=== PATIENT | female | born 1955 | race Caucasian/White ===

== ENCOUNTER 2018-12-09 17:54 | Emergency (ER) | payer OTHER ==
[2018-12-09 18:15] VITALS: BP 153/84
--- NOTE | 2018-12-09 18:41 | ED ---
Throat Pain/Nasal Congestion - HPI Summary HPI Summary: 63 yr old female with the complaint of rash to the right forehead, pain for about six days and now right eye discomfort. She has not had fever. She has no other complaints. No NVD. No focal deficits. Symptoms are moderate. No blurred vision. - History of Current Complaint Chief Complaint: [facility] Time Seen by Provider: 12/09/18 18:16 - Allergies/Home Medications Allergies/Adverse Reactions: Allergies Allergy/AdvReac Type Severity Reaction Status Date / Time No Known Allergies Allergy Verified 12/09/18 18:21 Home Medications: Home Medications Insulin GLARGINE(*) [Lantus(*)] 1 unit SUBCUT DAILY 12/09/18 [History Confirmed 12/09/18] Insulin LISPRO* [HumaLOG*] 1 unit PO DAILY 12/09/18 [History Confirmed 12/09/18] Losartan Potassium 25 mg PO DAILY 12/09/18 [History Confirmed 12/09/18] Metoprolol Tartrate TAB* [Lopressor TAB*] 50 mg PO DAILY 12/09/18 [History Confirmed 12/09/18] metFORMIN* [Glucophage 500 MG TAB *] 500 mg PO DAILY 12/09/18 [History Confirmed 12/09/18] PMH/Surg Hx/FS Hx/Imm Hx Endocrine/Hematology History: Reports: Hx Diabetes - 2 - Surgical History Surgery Procedure, Year, and Place: appendectomy Infectious Disease History: No Infectious Disease History: Denies: Traveled Outside the [place] in Last 30 Days - Family History Known Family History: Positive: None - Social History Alcohol Use: Rare Substance Use Type: Reports: None Smoking Status (MU): Never Smoked Tobacco Review of Systems Constitutional: Negative Positive: Other - pain right Positive: Other - rash right forehead and upper eyelid Negative: Weakness, Paresthesia, Numbness, Syncope All Other Systems Reviewed And Are Negative: Yes Physical Exam Triage Information Reviewed: Yes Vital Signs On Initial Exam: Initial Vitals Temp Pulse Resp BP Pulse Ox 98.1 F 91 16 153/84 100 12/09/18 18:07 12/09/18 18:07 12/09/18 18:07 12/09/18 18:07 12/09/18 18:07 Vital Signs Reviewed: Yes Appearance: Positive: Well-Appearing, No Pain Distress Skin: Positive: Other - rash right forehead that is scabbed, and in dermatome distribution. It is consistent with shingles The right upper eyelid is involved as well. Eyes: Positive: EOMI, ROSEMARIE, Conjunctiva Inflammed - right, Other: - right eye with mild chemosis of conjunctiva and eye irritations. ENT: Positive: Pharynx normal. Negative: Nasal congestion Neck: Positive: Nontender Respiratory/Lung Sounds: Positive: Clear to Auscultation, Breath Sounds Present Cardiovascular: Positive: RRR. Negative: Murmur Abdomen Description: Negative: Distended Musculoskeletal: Positive: Strength/ROM Intact Neurological: Positive: Sensory/Motor Intact, Alert, Oriented to Person Place, Time, CN Intact II-III, Normal Gait, Speech Normal - Herberth Coma Scale Best Eye Response: 4 - Spontaneous Best Motor Response: 6 - Obeys Commands Best Verbal Response: 5 - Oriented Coma Scale Total: 15 Diagnostics - Vital Signs Vital Signs Temp Pulse Resp BP Pulse Ox 12/09/18 18:07 98.1 F 91 16 153/84 100 - Laboratory Lab Statement: Any lab studies that have been ordered have been reviewed, and results considered in the medical decision making process. EENT Course/Dx - Course Course Of Treatment: 63 yr old with shingles. She needs to go to the ER for slit lamp exam to evaluate her cornea. She verbalizes she will not go. I have made it clear to her with understanding that she could lose vision, have cornea damage by delaying evaluation, diagnosis and treatment She signed out AMA - Diagnoses Provider Diagnoses: Shingles of eyelid, Shingles, Hypertension Discharge - Sign-Out/Discharge Documenting (check all that apply): Patient Departure All imaging exams completed and their final reports reviewed: No Studies - Discharge Plan Condition: Good Disposition: AGAINST MEDICAL ADVICE Referrals: Oskar Singh MD [Primary Care Provider] - - Billing Disposition and Condition Condition: GOOD Disposition: Against Medical Advice
== END 2018-12-09 18:39 | disposition left against medical advice (07) ==
LOC: UCEAST 17:54
DX: B02.39 Other herpes zoster eye disease (principal); I10 Essential (primary) hypertension; E11.9 Type 2 diabetes mellitus without complications; Z79.4 Long term (current) use of insulin
CPT/HCPCS: 99212; G0463

== ENCOUNTER 2018-12-09 18:46 | Emergency (ER) | payer OTHER ==
[2018-12-09] MEDS ORDERED: ValACYclovir (*) 500 MG TAB PO ONE (21:21)
--- NOTE | 2018-12-09 21:42 | ED ---
Skin Complaint - HPI Summary HPI Summary: 63-year-old female presents from [facility] for evaluation of shingles. Patient states she developed the rash 5-6 days ago. Started on right forehead and has since spread to her upper right eyelid and temporal scalp. States it is non- pruritic, non-painful. Noted her right eye had become little red today but denies pain, itching, or visual disturbances. - History of Current Complaint Chief Complaint: EDRashSkinAbscess Time Seen by Provider: 12/09/18 20:34 Stated Complaint: POSS SHINGLES PER PT Hx Obtained From: Patient Pain Intensity: 2 - Allergy/Home Medications Allergies/Adverse Reactions: Allergies Allergy/AdvReac Type Severity Reaction Status Date / Time No Known Allergies Allergy Verified 12/09/18 18:21 PMH/Surg Hx/FS Hx/Imm Hx Endocrine/Hematology History: Reports: Hx Diabetes - 2 Cardiovascular History: Reports: Hx Hypertension - Surgical History Surgery Procedure, Year, and Place: appendectomy Infectious Disease History: No Infectious Disease History: Denies: Hx Shingles, Traveled Outside the [place] in Last 30 Days - Family History Known Family History: Positive: Non-Contributory - Social History Occupation: Retired Lives: With Family Alcohol Use: Rare Substance Use Type: Reports: None Smoking Status (MU): Never Smoked Tobacco Review of Systems Negative: Fever, Chills Positive: Erythema. Negative: Photophobia, Blurred Vision, Diplopia, Drainage ENT: Negative Cardiovascular: Negative Respiratory: Negative Gastrointestinal: Negative Genitourinary: Negative Musculoskeletal: Negative Skin: Other - See HPI Neurological: Negative All Other Systems Reviewed And Are Negative: Yes Physical Exam - Summary Physical Exam Summary: GENERAL APPEARANCE: Alert and cooperative older adult female appears to be in no acute distress. EYES: Eyelids symmetric and without pstosis. Mild conjunctival erythema. No obvious lesions or FB. No drainage. PERRL, EOM intact. Vision is grossly intact. Fundoscopic exam limited but no papiloedema, knicking, or exudates noted. EARS: External auditory canals and tympanic membranes clear, hearing grossly intact. NOSE: No nasal discharge. THROAT: Pharynx normal No tonsilar inflammation, swelling, exudate, or lesions. Uvula midline. Oral cavity normal. Teeth and gingiva in good general condition. NECK: Neck supple, non-tender without lymphadenopathy. CARDIAC: Normal S1 and S2. No S3, S4 or murmurs. Rhythm is regular. There is no peripheral edema, cyanosis or pallor. Extremities are warm and well perfused. Capillary refill is less than 2 seconds. Peripheral pulses intact. LUNGS: Clear to auscultation without rales, rhonchi, wheezing or diminished breath sounds. ABDOMEN: Positive bowel sounds. Soft, nondistended, nontender. No guarding or rebound. No masses or hepatosplenomegally. MUSKULOSKELETAL: ROM intact to all extremities. No joint erythema or tenderness. Normal muscular development. Normal gait. SKIN: Vesicular, dermatomal rash that extends from the upper right eyelid to the temporal scalp with multiple crusted lesions over the forehead. Triage Information Reviewed: Yes Vital Signs On Initial Exam: Initial Vitals Temp Pulse Resp BP Pulse Ox 98.6 F 98 18 187/86 96 12/09/18 18:50 12/09/18 18:50 12/09/18 18:50 12/09/18 18:50 12/09/18 18:50 Vital Signs Reviewed: Yes Diagnostics - Vital Signs Vital Signs Temp Pulse Resp BP Pulse Ox 12/09/18 18:50 98.6 F 98 18 187/86 96 - Laboratory Lab Statement: Any lab studies that have been ordered have been reviewed, and results considered in the medical decision making process. Course/Dx - Course Course Of Treatment: 63-year-old female presents from [facility] for evaluation of shingles. Patient states she developed the rash 5-6 days ago. Started on right forehead and has since spread to her upper right eyelid and temporal scalp. States it is non-pruritic, non-painful. Noted her right eye had become little red today but denies pain, itching, or visual disturbances. Afebrile. Hypertensive otherwise VSS stable. Patient's eye exam was limited but unremarkable except for some mild conjunctival erythema. Patient had a vesicular , dermatomal rash that extends from the upper right eyelid to the temporal scalp with multiple crusted lesions over the right forehead. Remainder of exam was uremarkable. Patient will be started on valacyclovir 1000 mg TID x 7 days. First dose was given in the ED. She is to follow up with ophthalmology in 1-2 days for further evaluation for ophthalmic shingles. Also recommending follow up with PCP in 5-7 days for re-evaluation of symptoms. Anticipatory guidance and warning symptoms were reviewed with patient. Verbalizes understanding and agrees with POC. - Differential Diagnoses - Skin Complaint Differential Diagnoses: Contact Dermatitis, Eczema, Local Allergic Reaction, Poison Aarti, Poison Hewett - Diagnoses Provider Diagnoses: Herpes zoster, Herpes zoster conjunctivitis of right eye Discharge - Sign-Out/Discharge Documenting (check all that apply): Patient Departure Patient Received Moderate/Deep Sedation with Procedure: No - Discharge Plan Condition: Stable Disposition: HOME Prescriptions: Valacyclovir HCl [Valacyclovir] 1 gm PO TID 7 Days #21 tab Patient Education Materials: Shingles (ED) Referrals: Oskar Singh MD [Primary Care Provider] - 5 Days Hi Marc MD [Medical Doctor] - 2 Days (Call tomorrow for appointment.) Additional Instructions: Your rash appears to be shingles which is caused by the same virus that causes chickenpox. We will start you on an antiviral medication to try to help prevent the rash from worsening however this is not a cure for shingles. Shingles we'll have to run its course and may take several weeks to fully resolve. Take valacyclovir 1000 mg 3 times a day for 7 days. We gave you the first dose in the emergency room. Your eye exam performed in the emergency room was unremarkable however was limited. I'm recommending that you follow up with ophthalmology in one to 2 days for further evaluation. Please call tomorrow for an appointment. Follow-up with your primary care provider in 5-7 days for recheck of your symptoms. Return to the emergency room if you develop severe eye pain, visual disturbances , loss of vision, or any worsening of symptoms. - Billing Disposition and Condition Condition: STABLE Disposition: Home Images - Images Head: 1 - Vesicular, dermatomal, rash with crusted vesicles - Attestation Statements Provider Attestation: I was available for consult for this patient. I did not participate in any medical decision making or disposition unless I am named as having consulted on the patient. If I have consulted on the patient, please see m own ED note. Kylah Castrejon MD
[2018-12-09 21:58] VITALS: BP 158/89
== END 2018-12-09 21:57 | disposition home or self-care (01) ==
LOC: ED 18:46
DX: B02.9 Zoster without complications (principal); B02.31 Zoster conjunctivitis; E11.9 Type 2 diabetes mellitus without complications; I10 Essential (primary) hypertension
CPT/HCPCS: 99282